=== PATIENT | male | born 1950 | race Caucasian/White ===

== ENCOUNTER 2017-06-18 16:52 | Inpatient (IN) ==
[2017-06-18] MEDS ORDERED: MORPHINE 2 MG/1 ML SYRINGE IV STA (17:36)
[2017-06-18] MEDS ORDERED: METOPROLOL TARTRATE 25 MG TABLET PO STA (17:36)
[2017-06-18] MEDS ORDERED: PANTOPRAZOLE 40 MG VIAL IV STA (17:36)
[2017-06-18] MEDS ORDERED: NITROGLYCERIN 2% OINT 1 INCH/GM PACK TOP STA (17:36)
[2017-06-18] MEDS ORDERED: ONDANSETRON 4 MG/2 ML VIAL IV STA (17:36)
[2017-06-18] MEDS ORDERED: ASPIRIN 325 MG TABLET PO STA (17:36)
[2017-06-18] MEDS ORDERED: ALUM/MAG/SIMETH/LIDO VISC 1:1 30 ML BOTTLE PO STA (17:36)
[2017-06-18] MEDS ORDERED: PANTOPRAZOLE 40 MG VIAL IV ONE (17:49)
[2017-06-18] MEDS ORDERED: ONDANSETRON 4 MG/2 ML VIAL ONE (17:49)
[2017-06-18] MEDS ORDERED: NITROGLYCERIN 2% OINT 1 INCH/GM PACK TOP ONE (17:49)
[2017-06-18] MEDS ORDERED: METOPROLOL TARTRATE 25 MG TABLET ONE (17:49)
[2017-06-18] MEDS ORDERED: ASPIRIN 325 MG TABLET ONE (17:50)
[2017-06-18] MEDS ORDERED: MORPHINE 10 MG/1 ML VIAL ONE (17:50)
[2017-06-18] MEDS ORDERED: ALUM/MAG/SIMETH/LIDO VISC 1:1 30 ML BOTTLE PO ONE (17:50)
[2017-06-18 18:28] LABS: Basophils % 0.2 % (0.0-0.8); Hematocrit 46.6 VOL% (42.0-52.0); Hemoglobin 16.2 GM/DL (14.0-18.0); Immature Granulocytes % 0.8 %; Immature Granulocytes Absolute 0.08 #; Lymphocytes # 0.7 10*3/uL (1.4-4.0); Lymphocytes % 7.2 % (21.2-54.2); Mean Corpuscular HGB Conc 34.8 GM/DL (32-36); Mean Corpuscular Hemoglobin 31 PG (27-34); Mean Corpuscular Volume 88.1 FL (87-102); Mean Platelet Volume 9.8 FL (9.6-12.0); Monocytes # 0.2 10*3/uL (0.11-0.8); Monocytes % 2.3 % (1.7-12.7); Neutrophils # 9.2 10*3/uL (1.4-7.4); Neutrophils % 89.5 % (38.7-73.9); Platelet Count 294 T/CUMM (130-400); Red Blood Count 5.29 MC/CUMM (3.8-5.5); Red Cell Distribution Width 12.9 % (9.3-17.3); White Blood Count 10.3 T/CUMM (4-12)
[2017-06-18 18:40] LABS: INR 1.1; PT Patient Result 11.4 SECS
[2017-06-18 18:47] LABS: Apearance,Urine Clear (Clear); Glucose,Urine (UA) 500 mg/dL (Negative); Ketones,Urine 25 mg/dL (Negative); Protein,Urine Negative; Urine Color Yellow (Yellow); Urine Specific Gravity 1.005 (1.001-1.035)
[2017-06-18 18:48] LABS: Bilirubin,Urine Negative (Negative); Blood, Urine Negative (Negative); Nitrite,Urine Negative (Negative); Urine Urobilinogen < 2.0 EU/DL (0.2-1.0)
[2017-06-18 18:51] LABS: Alanine Aminotransferase 33 U/L (16-61); Alkaline Phosphatase 115 U/L (45-117); Aspartate Amino Transferase 15 U/L (0-37); Bilirubin,Total < 0.39 MG/DL (0.2-1.0); Blood Urea Nitrogen 17 MG/DL (7-18); Calcium 9.1 MG/DL (8.5-10.1); Glucose 177 MG/DL (74-106); Lactic Acid 5.4 MMOL/L (0.4-2.0); Magnesium 2.1 MG/DL (1.8-2.4); Osmolality,Calculated 269.5 MOS/KG (273-304); Potassium 4.7 MMOL/L (3.5-5.1); Sodium 132 MMOL/L (136-145); Total Protein 7.5 G/DL (6.4-8.3)
[2017-06-18] MEDS ORDERED: PIPERACILLIN/TAZOBACTAM 3,375 MG VIAL IV ONE (19:39)
[2017-06-18] MEDS ORDERED: SODIUM CHLORIDE 0.9% 100 ML IV ONE (19:39)
[2017-06-18 19:50] LABS: ABG Base Excess -7.9 MMOL/L (-2.5-2.5); ABG HCO3 18.1 MMOL/L (20-26); ABG Oxygen Saturation 96.3 % (95-100); ABG PCO2 29.5 MM HG (35-48); ABG PH 7.351 (7.35-7.45); ABG PO2 88.6 MM HG (80-95); ABG TCO2 13.8 MMOL/L (23-27); Allen Test Positive
[2017-06-18] MEDS: PIPERACILLIN/TAZOBACTAM 3,375 MG in SODIUM CHLORIDE 0.9% 100 ML IV SCH (19:50)
[2017-06-18] MEDS ORDERED: DEXTROSE 50% 25 GM/50 ML VIAL IV PRN (22:06)
[2017-06-18] MEDS ORDERED: ACETAMINOPHEN 325 MG TABLET PO PRN (22:06)
[2017-06-18] MEDS ORDERED: LACTULOSE 20 GM/30 ML UDCUP PO PRN (22:06)
[2017-06-18] MEDS ORDERED: MORPHINE 10 MG/1 ML VIAL IV PRN (22:06)
[2017-06-18] MEDS ORDERED: GLUCAGON 1 MG VIAL IM PRN (22:06)
[2017-06-18] MEDS ORDERED: ONDANSETRON 4 MG/2 ML VIAL IV PRN (22:06)
[2017-06-18] MEDS: SODIUM CHLORIDE 0.9% 1,000 ML IV SCH (22:50)
[2017-06-18] MEDS: ENOXAPARIN 40 MG/0.4 ML SYRINGE SUBCUT SCH (22:51)
[2017-06-18] MEDS: DOCUSATE SODIUM 100 MG CAPSULE PO SCH (22:51)
[2017-06-18] MEDS: INSULIN REGULAR 100 UNIT/ML SUBCUT SCH (23:30)
[2017-06-19 00:16] LABS: Lactic Acid 3.8 MMOL/L (0.4-2.0)
[2017-06-19] MEDS: NITROGLYCERIN 2% OINT 1 INCH/GM PACK TOP SCH ×2 (00:24→06:18)
[2017-06-19] MEDS: PIPERACILLIN/TAZOBACTAM 3,375 MG in SODIUM CHLORIDE 0.9% 100 ML IV SCH ×3 (04:00→18:04)
[2017-06-19 05:55] LABS: Basophils % 0.2 % (0.0-0.8); Eosinophils % 0.2 % (0.00-10.9); Hematocrit 41.8 VOL% (42.0-52.0); Immature Granulocytes % 0.8 %; Lymphocytes # 2.6 10*3/uL (1.4-4.0); Lymphocytes % 19.9 % (21.2-54.2); Mean Corpuscular HGB Conc 33.5 GM/DL (32-36); Mean Corpuscular Hemoglobin 30 PG (27-34); Mean Corpuscular Volume 90.7 FL (87-102); Mean Platelet Volume 9.8 FL (9.6-12.0); Monocytes # 1.3 10*3/uL (0.11-0.8); Monocytes % 10.2 % (1.7-12.7); Neutrophils # 9.1 10*3/uL (1.4-7.4); Neutrophils % 68.7 % (38.7-73.9); Platelet Count 267 T/CUMM (130-400); Red Blood Count 4.61 MC/CUMM (3.8-5.5); Red Cell Distribution Width 13.1 % (9.3-17.3); White Blood Count 13.2 T/CUMM (4-12)
[2017-06-19 06:26] LABS: Albumin 3.3 G/DL (3.4-5.0); Bilirubin,Total 0.4 MG/DL (0.2-1.0); Calcium 8.4 MG/DL (8.5-10.1); Osmolality,Calculated 276.7 MOS/KG (273-304); Total Protein 6.2 G/DL (6.4-8.3)
[2017-06-19 06:28] LABS: Magnesium 2.4 MG/DL (1.8-2.4); Risk Ratio 4.28; VLDL CHOLESTEROL 23.4 MG/DL
[2017-06-19] MEDS ORDERED: RIZATRIPTAN ODT 5 MG TABLET PO PRN (07:55)
[2017-06-19] MEDS ORDERED: BUTALBITAL/ACETAMIN/CAFFEINE 50-325-40 MG TABLET PO SCH (08:00)
[2017-06-19] MEDS: metFORMIN 500 MG TABLET PO SCH ×2 (10:05→18:03)
[2017-06-19] MEDS: ASPIRIN EC 81 MG TABLET PO SCH (10:05)
[2017-06-19] MEDS: PANTOPRAZOLE 40 MG TABLET PO SCH ×2 (10:06→18:03)
[2017-06-19] MEDS: CLORAZEPATE 3.75 MG TABLET PO SCH ×3 (10:06→21:16)
[2017-06-19] MEDS: AMOXICILLIN/CLAV 875 MG TABLET PO SCH ×2 (10:06→21:16)
[2017-06-19] MEDS: TOPIRAMATE 100 MG TABLET PO SCH ×2 (10:06→21:16)
[2017-06-19] MEDS: DOCUSATE SODIUM 100 MG CAPSULE PO SCH ×2 (10:06→21:16)
[2017-06-19] MEDS: glipiZIDE 5 MG TABLET PO SCH ×2 (10:06→18:04)
[2017-06-19] MEDS: CETIRIZINE 10 MG TABLET PO SCH (10:06)
[2017-06-19] MEDS: SODIUM CHLORIDE 0.9% 1,000 ML IV SCH ×4 (10:07→21:50)
[2017-06-19] MEDS: INSULIN REGULAR 100 UNIT/ML SUBCUT SCH ×4 (10:07→21:16)
[2017-06-19] MEDS: PANTOPRAZOLE 40 MG VIAL IV SCH (10:07)
[2017-06-19] MEDS: methylPREDNISolone SOD SUC 40 MG/1 ML VIAL IV SCH ×2 (10:07→18:04)
[2017-06-19] MEDS: DICLOFENAC 1% GEL 100 GM TUBE TOP SCH ×4 (10:07→21:17)
[2017-06-19] MEDS: ENOXAPARIN 40 MG/0.4 ML SYRINGE SUBCUT SCH (21:16)
[2017-06-19] MEDS: CITALOPRAM 40 MG TABLET PO SCH (21:16)
[2017-06-19] MEDS: MONTELUKAST 10 MG TABLET PO SCH (21:16)
[2017-06-20] MEDS: methylPREDNISolone SOD SUC 40 MG/1 ML VIAL IV SCH ×3 (00:25→16:53)
[2017-06-20] MEDS: SODIUM CHLORIDE 0.9% 1,000 ML IV SCH ×4 (03:09→21:08)
[2017-06-20] MEDS: PIPERACILLIN/TAZOBACTAM 3,375 MG in SODIUM CHLORIDE 0.9% 100 ML IV SCH ×3 (03:09→22:22)
[2017-06-20 05:02] LABS: Basophils % 0.2 % (0.0-0.8); Hematocrit 43.4 VOL% (42.0-52.0); Hemoglobin 14.7 GM/DL (14.0-18.0); Immature Granulocytes % 0.8 %; Lymphocytes # 1.3 10*3/uL (1.4-4.0); Mean Corpuscular HGB Conc 33.9 GM/DL (32-36); Mean Corpuscular Hemoglobin 31 PG (27-34); Mean Corpuscular Volume 90.2 FL (87-102); Mean Platelet Volume 9.5 FL (9.6-12.0); Monocytes # 0.4 10*3/uL (0.11-0.8); Monocytes % 2.9 % (1.7-12.7); Neutrophils # 11.4 10*3/uL (1.4-7.4); Neutrophils % 86.1 % (38.7-73.9); Platelet Count 287 T/CUMM (130-400); Red Blood Count 4.81 MC/CUMM (3.8-5.5); Red Cell Distribution Width 12.9 % (9.3-17.3); White Blood Count 13.2 T/CUMM (4-12)
[2017-06-20 05:37] LABS: Calcium 8.7 MG/DL (8.5-10.1); Osmolality,Calculated 276.8 MOS/KG (273-304); Potassium 4.3 MMOL/L (3.5-5.1)
[2017-06-20] MEDS: INSULIN REGULAR 100 UNIT/ML SUBCUT SCH ×4 (09:00→21:08)
[2017-06-20] MEDS: DOCUSATE SODIUM 100 MG CAPSULE PO SCH ×2 (09:03→21:07)
[2017-06-20] MEDS: metFORMIN 500 MG TABLET PO SCH ×2 (09:04→16:51)
[2017-06-20] MEDS: PANTOPRAZOLE 40 MG TABLET PO SCH ×2 (09:04→17:01)
[2017-06-20] MEDS: CETIRIZINE 10 MG TABLET PO SCH (09:04)
[2017-06-20] MEDS: AMOXICILLIN/CLAV 875 MG TABLET PO SCH ×2 (09:04→21:07)
[2017-06-20] MEDS: ASPIRIN EC 81 MG TABLET PO SCH (09:04)
[2017-06-20] MEDS: CLORAZEPATE 3.75 MG TABLET PO SCH ×3 (09:05→21:07)
[2017-06-20] MEDS: glipiZIDE 5 MG TABLET PO SCH ×2 (09:05→17:02)
[2017-06-20] MEDS: PANTOPRAZOLE 40 MG VIAL IV SCH (09:11)
[2017-06-20] MEDS: DICLOFENAC 1% GEL 100 GM TUBE TOP SCH ×3 (13:26→21:08)
[2017-06-20] MEDS: TOPIRAMATE 100 MG TABLET PO SCH ×2 (13:27→21:07)
[2017-06-20] MEDS: ENOXAPARIN 40 MG/0.4 ML SYRINGE SUBCUT SCH (21:07)
[2017-06-20] MEDS: MONTELUKAST 10 MG TABLET PO SCH (21:07)
[2017-06-20] MEDS: CITALOPRAM 40 MG TABLET PO SCH (21:07)
[2017-06-21] MEDS: methylPREDNISolone SOD SUC 40 MG/1 ML VIAL IV SCH ×3 (00:14→17:03)
[2017-06-21 05:44] LABS: Basophils % 0.3 % (0.0-0.8); Hematocrit 42.2 VOL% (42.0-52.0); Hemoglobin 14.5 GM/DL (14.0-18.0); Immature Granulocytes % 1.6 %; Immature Granulocytes Absolute 0.18 #; Lymphocytes # 1.5 10*3/uL (1.4-4.0); Lymphocytes % 13.2 % (21.2-54.2); Mean Corpuscular HGB Conc 34.4 GM/DL (32-36); Mean Corpuscular Hemoglobin 31 PG (27-34); Mean Corpuscular Volume 89.6 FL (87-102); Mean Platelet Volume 9.5 FL (9.6-12.0); Monocytes # 0.5 10*3/uL (0.11-0.8); Monocytes % 4.5 % (1.7-12.7); Neutrophils # 9.2 10*3/uL (1.4-7.4); Neutrophils % 80.4 % (38.7-73.9); Platelet Count 264 T/CUMM (130-400); Red Blood Count 4.71 MC/CUMM (3.8-5.5); White Blood Count 11.5 T/CUMM (4-12)
[2017-06-21] MEDS: PIPERACILLIN/TAZOBACTAM 3,375 MG in SODIUM CHLORIDE 0.9% 100 ML IV SCH ×2 (06:04→11:28)
[2017-06-21] MEDS: SODIUM CHLORIDE 0.9% 1,000 ML IV SCH ×2 (06:05→17:00)
[2017-06-21 06:24] LABS: Calcium 8.3 MG/DL (8.5-10.1); Free T4 (Free Thyroxine) 0.72 NG/DL (0.76-1.46); Osmolality,Calculated 280.8 MOS/KG (273-304); Potassium 4.4 MMOL/L (3.5-5.1); Thyroid Stimulating Hormone 1.01 uIU/ml (0.358-3.74)
[2017-06-21 08:13] LABS: Sedimentation Rate-Westergren 16 MM/HR (0-20)
[2017-06-21] MEDS: CETIRIZINE 10 MG TABLET PO SCH (08:40)
[2017-06-21] MEDS: DOCUSATE SODIUM 100 MG CAPSULE PO SCH (08:40)
[2017-06-21] MEDS: ASPIRIN EC 81 MG TABLET PO SCH (08:40)
[2017-06-21] MEDS: AMOXICILLIN/CLAV 875 MG TABLET PO SCH (08:40)
[2017-06-21] MEDS: CLORAZEPATE 3.75 MG TABLET PO SCH ×2 (08:41→14:57)
[2017-06-21] MEDS: glipiZIDE 5 MG TABLET PO SCH ×2 (08:41→17:12)
[2017-06-21] MEDS: metFORMIN 500 MG TABLET PO SCH ×2 (08:41→17:12)
[2017-06-21] MEDS: TOPIRAMATE 100 MG TABLET PO SCH (08:41)
[2017-06-21] MEDS: PANTOPRAZOLE 40 MG TABLET PO SCH ×2 (08:41→17:12)
[2017-06-21] MEDS: PANTOPRAZOLE 40 MG VIAL IV SCH (08:42)
[2017-06-21] MEDS: INSULIN REGULAR 100 UNIT/ML SUBCUT SCH ×3 (08:47→17:02)
[2017-06-21] MEDS: DICLOFENAC 1% GEL 100 GM TUBE TOP SCH ×3 (08:48→17:04)
[2017-06-21 16:32] VITALS: BP 125/71
[2017-06-21] MEDS ORDERED: MELOXICAM 7.5 MG TABLET PO SCH (17:00)
== END 2017-06-21 17:20 | disposition home or self-care (01) | DRG 206 ==
LOC: N.ED 16:52 → N.EDINP 20:15 → N.TELES 21:37
PROVIDERS: ADMIT Family Medicine; ATTEND Family Medicine

== ENCOUNTER 2019-06-03 15:33 | Inpatient (IN) ==
[2019-06-03] MEDS ORDERED: ONDANSETRON 4 MG/2 ML VIAL IV STA (16:00)
[2019-06-03] MEDS ORDERED: ASPIRIN 325 MG TABLET PO STA (16:00)
[2019-06-03] MEDS ORDERED: MORPHINE 4 MG/1 ML VIAL IV STA (16:00)
[2019-06-03] MEDS ORDERED: SODIUM CHLORIDE 0.9% 500 ML IV STA (16:00)
[2019-06-03] MEDS ORDERED: cefTRIAXone 1,000 MG in SODIUM CHLORIDE 0.9% 100 ML IV STA (16:00)
[2019-06-03] MEDS ORDERED: methylPREDNISolone SOD SUC 125 MG/2 ML VIAL IV STA (16:00)
[2019-06-03] MEDS ORDERED: ALBUTEROL/IPRATROPIUM 3 ML NEB RESP TX STA (16:00)
[2019-06-03 16:24] LABS: Basophils % 0.5 % (0.0-0.8); Eosinophils # 0.3 10*3/uL (0.0-0.87); Eosinophils % 4.7 % (0.00-10.9); Hematocrit 42.8 VOL% (42.0-52.0); Hemoglobin 14.6 GM/DL (14.0-18.0); Immature Granulocytes % 1.5 %; Immature Granulocytes Absolute 0.09 #; Lymphocytes # 1.7 10*3/uL (1.4-4.0); Lymphocytes % 27.8 % (21.2-54.2); Mean Corpuscular HGB Conc 34.1 GM/DL (32-36); Mean Corpuscular Volume 93.9 FL (87-102); Mean Platelet Volume 9.9 FL (9.6-12.0); Monocytes % 14.3 % (1.7-12.7); Neutrophils % 51.2 % (38.7-73.9); Platelet Count 147 T/CUMM (130-400); Red Blood Count 4.56 MC/CUMM (3.8-5.5); Red Cell Distribution Width 12.8 % (9.3-17.3); White Blood Count 5.9 T/CUMM (4-12)
[2019-06-03 16:35] LABS: PT Patient Result 10.4 SECS (9.6-12.2)
[2019-06-03 16:46] LABS: Alanine Aminotransferase 44 U/L (16-61); Albumin 2.9 G/DL (3.4-5.0); Alkaline Phosphatase 89 U/L (45-117); Aspartate Amino Transferase 27 U/L (0-37); Bilirubin,Total < 0.39 MG/DL (0.2-1.0); Blood Urea Nitrogen 14 MG/DL (7-18); Calcium 8.4 MG/DL (8.5-10.1); Estimated Glom Filtration Rate 99 ML/MIN; Glucose 184 MG/DL (74-106); Osmolality,Calculated 275.1 MOS/KG (273-304); Total Protein 6.6 G/DL (6.4-8.3); Troponin I < 0.015 NG/ML (0.00-0.045)
[2019-06-03 16:52] LABS: Apearance,Urine CLEAR (Clear); Bilirubin,Urine Negative (Negative); Blood, Urine Negative (Negative); Glucose,Urine (UA) 50 mg/dL (Negative); Ketones,Urine 5 mg/dL (Negative); Nitrite,Urine Negative (Negative); Protein,Urine Negative; RBC,Urine 2 /HPF (0-4); Urine Color Straw (Yellow); Urine Specific Gravity 1.009 (1.001-1.035); Urine Urobilinogen < 2.0 EU/DL (0.2-1.0)
[2019-06-03] MEDS ORDERED: ONDANSETRON 4 MG/2 ML VIAL IV PRN (18:58)
[2019-06-03] MEDS ORDERED: GLUCAGON 1 MG VIAL IM PRN (18:58)
[2019-06-03] MEDS ORDERED: MORPHINE 4 MG/1 ML VIAL IV PRN (18:58)
[2019-06-03] MEDS ORDERED: DEXTROSE 50% 25 GM/50 ML VIAL IV PRN (18:58)
[2019-06-03] MEDS ORDERED: guaiFENesin/CODEINE 5 ML LIQUID PO PRN (18:58)
[2019-06-03] MEDS ORDERED: GALCANEZUMAB GNLM 120 MG SUBCUT SCH (18:58)
[2019-06-03] MEDS ORDERED: INDOMETHACIN SR 75 MG CAPSULE PO SCH (21:00)
[2019-06-03] MEDS: DOCUSATE SODIUM 100 MG CAPSULE PO SCH (21:42)
[2019-06-03] MEDS: GABAPENTIN 300 MG CAPSULE PO SCH (21:43)
[2019-06-03] MEDS: metFORMIN 500 MG TABLET PO SCH (21:44)
[2019-06-03] MEDS: DIVALPROEX 250 MG TABLET PO SCH (21:45)
[2019-06-03] MEDS: QUEtiapine 25 MG TABLET PO SCH (21:45)
[2019-06-03] MEDS: clonazePAM 0.5 MG TABLET PO SCH (21:45)
[2019-06-03] MEDS: INSULIN REGULAR 100 UNIT/ML SUBCUT SCH (21:46)
[2019-06-03] MEDS: ENOXAPARIN 40 MG/0.4 ML SYRINGE SUBCUT SCH (21:47)
[2019-06-03] MEDS: SODIUM CHLORIDE 0.9% 1,000 ML IV SCH (21:48)
[2019-06-04] MEDS: methylPREDNISolone SOD SUC 40 MG/1 ML VIAL IV SCH ×3 (00:25→16:42)
[2019-06-04] MEDS: ALBUTEROL/IPRATROPIUM 3 ML NEB RESP TX PRN ×3 (00:50→16:16)
[2019-06-04] MEDS: INSULIN REGULAR 100 UNIT/ML SUBCUT SCH ×4 (03:01→18:05)
[2019-06-04 04:58] LABS: Basophils % 0.2 % (0.0-0.8); Hematocrit 45.5 VOL% (42.0-52.0); Hemoglobin 15.2 GM/DL (14.0-18.0); Immature Granulocytes % 1.6 %; Immature Granulocytes Absolute 0.13 #; Lymphocytes # 0.8 10*3/uL (1.4-4.0); Lymphocytes % 10.2 % (21.2-54.2); Mean Corpuscular HGB Conc 33.4 GM/DL (32-36); Mean Corpuscular Volume 94.8 FL (87-102); Mean Platelet Volume 9.8 FL (9.6-12.0); Monocytes % 2.7 % (1.7-12.7); Neutrophils % 85.3 % (38.7-73.9); Platelet Count 157 T/CUMM (130-400); Red Cell Distribution Width 12.8 % (9.3-17.3)
[2019-06-04 05:21] LABS: Albumin 3.3 G/DL (3.4-5.0); Bilirubin,Total 0.4 MG/DL (0.2-1.0); Calcium 9.1 MG/DL (8.5-10.1); Osmolality,Calculated 282.8 MOS/KG (273-304); Risk Ratio 4.03; Total Protein 7.2 G/DL (6.4-8.3)
[2019-06-04] MEDS ORDERED: PANTOPRAZOLE 40 MG TABLET PO SCH (09:00)
[2019-06-04] MEDS: ACETAMINOPHEN 325 MG TABLET PO PRN (10:44)
[2019-06-04] MEDS: ASPIRIN EC 81 MG TABLET PO SCH (10:45)
[2019-06-04] MEDS: glipiZIDE 10 MG TABLET PO SCH ×2 (10:45→16:41)
[2019-06-04] MEDS: metFORMIN 500 MG TABLET PO SCH ×2 (10:45→20:36)
[2019-06-04] MEDS: SIMVASTATIN 20 MG TABLET PO SCH (10:45)
[2019-06-04] MEDS: predniSONE 5 MG TABLET PO SCH (10:45)
[2019-06-04] MEDS: GABAPENTIN 300 MG CAPSULE PO SCH ×2 (10:45→20:37)
[2019-06-04] MEDS: DOCUSATE SODIUM 100 MG CAPSULE PO SCH ×2 (10:45→20:36)
[2019-06-04] MEDS: DIVALPROEX 250 MG TABLET PO SCH ×2 (10:46→20:37)
[2019-06-04] MEDS: PANTOPRAZOLE 40 MG TABLET PO SCH ×2 (10:46→16:41)
[2019-06-04] MEDS: QUEtiapine 25 MG TABLET PO SCH ×2 (10:46→20:37)
[2019-06-04] MEDS: clonazePAM 0.5 MG TABLET PO SCH ×2 (10:46→20:37)
[2019-06-04] MEDS: SODIUM CHLORIDE 0.9% 1,000 ML IV SCH ×2 (12:45→13:41)
[2019-06-04] MEDS: cefTRIAXone 1,000 MG in SYRINGE 1 EACH IV SCH (16:43)
[2019-06-04] MEDS: ALBUTEROL/IPRATROPIUM 3 ML NEB RESP TX SCH (19:08)
[2019-06-04] MEDS: ENOXAPARIN 40 MG/0.4 ML SYRINGE SUBCUT SCH (20:37)
[2019-06-05] MEDS: SODIUM CHLORIDE 0.9% 1,000 ML IV SCH ×3 (00:16→16:20)
[2019-06-05] MEDS: methylPREDNISolone SOD SUC 40 MG/1 ML VIAL IV SCH ×3 (00:23→16:19)
[2019-06-05] MEDS: INSULIN REGULAR 100 UNIT/ML SUBCUT SCH ×4 (00:24→19:04)
[2019-06-05] MEDS: ALBUTEROL/IPRATROPIUM 3 ML NEB RESP TX SCH ×4 (00:38→19:30)
[2019-06-05 05:00] LABS: Basophils % 0.2 % (0.0-0.8); Hematocrit 42.1 VOL% (42.0-52.0); Hemoglobin 13.8 GM/DL (14.0-18.0); Immature Granulocytes % 1.5 %; Immature Granulocytes Absolute 0.21 #; Lymphocytes # 1.3 10*3/uL (1.4-4.0); Lymphocytes % 9.5 % (21.2-54.2); Mean Corpuscular HGB Conc 32.8 GM/DL (32-36); Mean Corpuscular Volume 95.7 FL (87-102); Mean Platelet Volume 9.7 FL (9.6-12.0); Neutrophils % 83.8 % (38.7-73.9); Platelet Count 180 T/CUMM (130-400)
[2019-06-05 05:28] LABS: Platelet Estimate Normal
[2019-06-05 05:29] LABS: Anisocytosis Slight; Macrocytosis Slight
[2019-06-05] MEDS: ASPIRIN EC 81 MG TABLET PO SCH (08:28)
[2019-06-05] MEDS: metFORMIN 500 MG TABLET PO SCH (08:29)
[2019-06-05] MEDS: DIVALPROEX 250 MG TABLET PO SCH ×2 (08:29→21:11)
[2019-06-05] MEDS: PANTOPRAZOLE 40 MG TABLET PO SCH ×2 (08:29→16:19)
[2019-06-05] MEDS: SIMVASTATIN 20 MG TABLET PO SCH (08:30)
[2019-06-05] MEDS: glipiZIDE 10 MG TABLET PO SCH ×2 (08:30→16:19)
[2019-06-05] MEDS: DOCUSATE SODIUM 100 MG CAPSULE PO SCH ×2 (08:30→21:12)
[2019-06-05] MEDS: clonazePAM 0.5 MG TABLET PO SCH ×2 (08:32→21:11)
[2019-06-05] MEDS: QUEtiapine 25 MG TABLET PO SCH ×2 (08:32→21:12)
[2019-06-05] MEDS: GABAPENTIN 300 MG CAPSULE PO SCH ×2 (08:32→21:12)
[2019-06-05] MEDS: predniSONE 5 MG TABLET PO SCH (08:38)
[2019-06-05 10:48] LABS: Alanine Aminotransferase 39 U/L (16-61); Albumin 3.1 G/DL (3.4-5.0); Alkaline Phosphatase 79 U/L (45-117); Aspartate Amino Transferase 13 U/L (0-37); Bilirubin,Total < 0.39 MG/DL (0.2-1.0); Blood Urea Nitrogen 17 MG/DL (7-18); Calcium 8.3 MG/DL (8.5-10.1); Estimated Glom Filtration Rate 80 ML/MIN; Glucose 238 MG/DL (74-106); Osmolality,Calculated 288.4 MOS/KG (273-304); Total Protein 6.5 G/DL (6.4-8.3)
[2019-06-05 13:02] LABS: Calcium 8.8 MG/DL (8.5-10.1); Osmolality,Calculated 277.1 MOS/KG (273-304)
[2019-06-05] MEDS: cefTRIAXone 1,000 MG in SYRINGE 1 EACH IV SCH (16:19)
[2019-06-05] MEDS: ACETAMINOPHEN 325 MG TABLET PO PRN (21:11)
[2019-06-05] MEDS: ENOXAPARIN 40 MG/0.4 ML SYRINGE SUBCUT SCH (21:12)
[2019-06-06] MEDS: methylPREDNISolone SOD SUC 40 MG/1 ML VIAL IV SCH (00:28)
[2019-06-06] MEDS: INSULIN REGULAR 100 UNIT/ML SUBCUT SCH ×2 (00:29→07:38)
[2019-06-06] MEDS: ALBUTEROL/IPRATROPIUM 3 ML NEB RESP TX SCH ×2 (00:40→06:58)
[2019-06-06 05:11] LABS: Basophils # 0.1 10*3/uL (0.0-0.2); Basophils % 0.7 % (0.0-0.8); Hematocrit 44.2 VOL% (42.0-52.0); Hemoglobin 14.5 GM/DL (14.0-18.0); Immature Granulocytes % 3.6 %; Immature Granulocytes Absolute 0.48 #; Lymphocytes # 1.4 10*3/uL (1.4-4.0); Lymphocytes % 10.3 % (21.2-54.2); Mean Corpuscular HGB Conc 32.8 GM/DL (32-36); Mean Corpuscular Volume 95.7 FL (87-102); Mean Platelet Volume 9.4 FL (9.6-12.0); Monocytes % 5.5 % (1.7-12.7); Neutrophils % 79.9 % (38.7-73.9); Platelet Count 177 T/CUMM (130-400); Red Blood Count 4.62 MC/CUMM (3.8-5.5); Red Cell Distribution Width 13.2 % (9.3-17.3); White Blood Count 13.5 T/CUMM (4-12)
[2019-06-06] MEDS: SODIUM CHLORIDE 0.9% 1,000 ML IV SCH (05:14)
[2019-06-06] MEDS ORDERED: BENZONATATE 100 MG CAPSULE PO PRN (07:42)
[2019-06-06] MEDS ORDERED: methylPREDNISolone 4 MG TABLET PO SCH (08:00)
[2019-06-06 08:26] VITALS: BP 154/86
[2019-06-06] MEDS ORDERED: CEFDINIR 300 MG CAPSULE PO SCH (09:00)
[2019-06-06] MEDS: clonazePAM 0.5 MG TABLET PO SCH (09:23)
[2019-06-06] MEDS: ASPIRIN EC 81 MG TABLET PO SCH (09:24)
[2019-06-06] MEDS: DOCUSATE SODIUM 100 MG CAPSULE PO SCH (09:24)
[2019-06-06] MEDS: glipiZIDE 10 MG TABLET PO SCH (09:24)
[2019-06-06] MEDS: predniSONE 5 MG TABLET PO SCH (09:24)
[2019-06-06] MEDS: SIMVASTATIN 20 MG TABLET PO SCH (09:24)
[2019-06-06] MEDS: DIVALPROEX 250 MG TABLET PO SCH (09:24)
[2019-06-06] MEDS: GABAPENTIN 300 MG CAPSULE PO SCH (09:25)
[2019-06-06] MEDS: QUEtiapine 25 MG TABLET PO SCH (09:25)
[2019-06-06] MEDS: PANTOPRAZOLE 40 MG TABLET PO SCH (09:25)
== END 2019-06-06 09:49 | disposition home or self-care (01) | DRG 202 ==
LOC: EDUNIT# → EDBD → N.ED 15:33 → N.EDINP 15:33 → N.2W 18:29 → N.2E 06-05 15:40
PROVIDERS: ADMIT Family Medicine; ATTEND Family Medicine

== ENCOUNTER 2020-04-22 20:28 | Inpatient (IN) ==
[2020-04-22 20:47] LABS: Basophils # 0.1 10*3/uL (0.0-0.2); Basophils % 0.4 % (0.0-0.8); Eosinophils % 0.1 % (0.00-10.9); Hematocrit 45.6 VOL% (42.0-52.0); Hemoglobin 16.2 GM/DL (14.0-18.0); Immature Granulocytes % 0.9 %; Immature Granulocytes Absolute 0.18 #; Lymphocytes # 0.8 10*3/uL (1.4-4.0); Lymphocytes % 4.1 % (21.2-54.2); Mean Corpuscular HGB Conc 35.5 GM/DL (32-36); Mean Corpuscular Volume 86.9 FL (87-102); Mean Platelet Volume 8.8 FL (9.6-12.0); Monocytes % 3.7 % (1.7-12.7); Neutrophils % 90.8 % (38.7-73.9); Platelet Count 241 T/CUMM (130-400); Red Blood Count 5.25 MC/CUMM (3.8-5.5); Red Cell Distribution Width 12.7 % (9.3-17.3); White Blood Count 19.7 T/CUMM (4-12)
[2020-04-22] MEDS ORDERED: SODIUM CHLORIDE 0.9% 1,000 ML IV STA ×2 (20:57→21:36)
[2020-04-22 21:03] LABS: Bilirubin,Urine Negative (Negative); Blood, Urine Negative (Negative); Glucose,Urine (UA) 150 mg/dL (Negative); Ketones,Urine 5 mg/dL (Negative); Mucus,Urine Occasional /LPF (Occasional); Nitrite,Urine Negative (Negative); Protein,Urine Negative; RBC,Urine 1 /HPF (0-4); Urine Appearance CLEAR (Clear); Urine Color Yellow (Yellow); Urine Specific Gravity 1.011 (1.001-1.035); WBC,Urine 1 /HPF (0-6)
[2020-04-22 21:05] LABS: Albumin 3.1 G/DL (3.4-5.0); Bilirubin,Total 0.7 MG/DL (0.2-1.0); Calcium 8.7 MG/DL (8.5-10.1); Osmolality,Calculated 260.8 MOS/KG (273-304); Potassium 4.1 MMOL/L (3.5-5.1); Total Protein 6.9 G/DL (6.4-8.3)
[2020-04-22 21:09] LABS: Band Neutrophils 9 % (0-10); Lymphocytes 4 % (20-55); Platelet Estimate Adequate; Segmented Neutrophils 82 % (50-85); Total Cells Counted 100
[2020-04-22] MEDS ORDERED: PIPERACILLIN/TAZOBACTAM 3,375 MG in SODIUM CHLORIDE 0.9% 100 ML IV STA (21:21)
[2020-04-22 21:41] LABS: Amylase 75 U/L (25-115); Troponin I < 0.015 NG/ML (0.00-0.045)
[2020-04-22] MEDS ORDERED: DILTIAZEM 50 MG/10 ML VIAL IV STA (22:32)
[2020-04-22] MEDS ORDERED: ENOXAPARIN 40 MG/0.4 ML SYRINGE SUBCUT STA (22:54)
[2020-04-22] MEDS ORDERED: ZALEPLON 5 MG CAPSULE PO PRN (23:31)
[2020-04-22] MEDS ORDERED: DOCUSATE SODIUM 100 MG CAPSULE PO PRN (23:41)
[2020-04-22] MEDS ORDERED: ACETAMINOPHEN 325 MG TABLET PO PRN (23:41)
[2020-04-22] MEDS ORDERED: ALBUTEROL 2.5 MG/3 ML NEB RESP TX PRN (23:41)
[2020-04-22] MEDS ORDERED: DEXTROSE 50% 25 GM/50 ML VIAL IV PRN (23:41)
[2020-04-22] MEDS ORDERED: ONDANSETRON 4 MG/2 ML VIAL IV PRN (23:41)
[2020-04-22] MEDS ORDERED: GLUCAGON 1 MG VIAL IM PRN (23:52)
[2020-04-23 00:14] LABS: Ferritin 65.1 ng/ml (26-388)
[2020-04-23] MEDS ORDERED: AMIODARONE INJ 150 MG in DEXTROSE 5% 100 ML IV ONE (00:40)
[2020-04-23] MEDS ORDERED: MAGNESIUM SULF RIDER 2 GM in PREMIX 1 EACH IV PRN (00:40)
[2020-04-23] MEDS ORDERED: POTASSIUM CHLORIDE 20 MEQ TABLET PO PRN (00:40)
[2020-04-23] MEDS ORDERED: MAGNESIUM SULF RIDER 4 GM in PREMIX 1 EACH IV PRN (00:40)
[2020-04-23] MEDS ORDERED: AMIODARONE INJ 450 MG in DEXTROSE 5% 241 ML IV SCH (01:00)
[2020-04-23] MEDS ORDERED: QUEtiapine 100 MG TABLET PO SCH (01:00)
[2020-04-23] MEDS ORDERED: AMIODARONE 150 MG/3 ML VIAL ONE (01:05)
[2020-04-23] MEDS: SODIUM CHLORIDE 0.9% 1,000 ML IV SCH ×3 (01:19→17:21)
[2020-04-23] MEDS: AMITRIPTYLINE 100 MG TABLET PO SCH ×3 (01:20→22:00)
[2020-04-23] MEDS: clonazePAM 0.5 MG TABLET PO SCH ×3 (01:20→22:00)
[2020-04-23] MEDS: DIVALPROEX 500 MG TABLET PO SCH ×3 (01:24→21:59)
[2020-04-23 05:55] LABS: Albumin 2.4 G/DL (3.4-5.0); Bilirubin,Total 0.6 MG/DL (0.2-1.0); Calcium 7.9 MG/DL (8.5-10.1); Osmolality,Calculated 261.2 MOS/KG (273-304); Potassium 4.7 MMOL/L (3.5-5.1); Total Protein 5.6 G/DL (6.4-8.3)
[2020-04-23] MEDS: PIPERACILLIN/TAZOBACTAM 3,375 MG in SODIUM CHLORIDE 0.9% 100 ML IV SCH ×3 (06:00→22:02)
[2020-04-23 06:03] LABS: Basophils # 0.1 10*3/uL (0.0-0.2); Basophils % 0.3 % (0.0-0.8); Eosinophils % 0.1 % (0.00-10.9); Hematocrit 41.3 VOL% (42.0-52.0); Hemoglobin 14.4 GM/DL (14.0-18.0); Immature Granulocytes Absolute 0.31 #; Lymphocytes # 1.7 10*3/uL (1.4-4.0); Lymphocytes % 5.3 % (21.2-54.2); Mean Corpuscular HGB Conc 34.9 GM/DL (32-36); Mean Corpuscular Volume 89.6 FL (87-102); Mean Platelet Volume 9.4 FL (9.6-12.0); Monocytes % 4.5 % (1.7-12.7); Neutrophils % 88.8 % (38.7-73.9); Platelet Count 226 T/CUMM (130-400); Red Blood Count 4.61 MC/CUMM (3.8-5.5); White Blood Count 31.5 T/CUMM (4-12)
[2020-04-23 06:30] LABS: Band Neutrophils 6 % (0-10); Lymphocytes 5 % (20-55); Platelet Estimate Adequate; Segmented Neutrophils 85 % (50-85); Total Cells Counted 100
[2020-04-23] MEDS: GABAPENTIN 300 MG CAPSULE PO SCH ×3 (08:19→21:59)
[2020-04-23] MEDS: INSULIN LISPRO 100 UNIT/ML SUBCUT SCH ×4 (08:19→21:59)
[2020-04-23] MEDS: TAMSULOSIN 0.4 MG CAPSULE PO SCH (08:20)
[2020-04-23] MEDS: glipiZIDE 10 MG TABLET PO SCH ×2 (08:20→16:15)
[2020-04-23] MEDS: SIMVASTATIN 20 MG TABLET PO SCH (08:20)
[2020-04-23] MEDS: busPIRone 15 MG TABLET PO SCH ×3 (08:20→22:01)
[2020-04-23] MEDS: PANTOPRAZOLE 40 MG TABLET PO SCH ×2 (08:20→16:15)
[2020-04-23] MEDS: ASPIRIN EC 81 MG TABLET PO SCH (08:20)
[2020-04-23] MEDS: QUEtiapine 25 MG TABLET PO SCH (08:20)
[2020-04-23 09:30] LABS: Thyroid Stimulating Hormone 1.26 uIU/ml (0.358-3.74)
[2020-04-23] MEDS: AMIODARONE INJ 450 MG in DEXTROSE 5% 241 ML IV SCH (09:36)
[2020-04-23] MEDS: AZITHROMYCIN INJ 500 MG in SODIUM CHLORIDE 0.9% 250 ML IV SCH (11:55)
[2020-04-23] MEDS: ENOXAPARIN 120 MG/0.8 ML SYRINGE SUBCUT SCH (16:14)
[2020-04-23] MEDS ORDERED: MAGNESIUM SULF RIDER 2 GM in PREMIX 1 EACH IV ONE (16:43)
[2020-04-23] MEDS ORDERED: ENOXAPARIN 40 MG/0.4 ML SYRINGE SUBCUT SCH (21:00)
[2020-04-24] MEDS: AMIODARONE INJ 450 MG in DEXTROSE 5% 241 ML IV SCH (01:14)
[2020-04-24] MEDS: SODIUM CHLORIDE 0.9% 1,000 ML IV SCH ×4 (01:16→18:18)
[2020-04-24] MEDS: ENOXAPARIN 120 MG/0.8 ML SYRINGE SUBCUT SCH (01:16)
[2020-04-24] MEDS: PIPERACILLIN/TAZOBACTAM 3,375 MG in SODIUM CHLORIDE 0.9% 100 ML IV SCH ×3 (04:24→21:55)
[2020-04-24 05:44] LABS: Basophils # 0.1 10*3/uL (0.0-0.2); Basophils % 0.3 % (0.0-0.8); Eosinophils # 0.2 10*3/uL (0.0-0.87); Eosinophils % 0.8 % (0.00-10.9); Hematocrit 37.8 VOL% (42.0-52.0); Hemoglobin 12.6 GM/DL (14.0-18.0); Immature Granulocytes % 0.7 %; Immature Granulocytes Absolute 0.14 #; Lymphocytes # 1.9 10*3/uL (1.4-4.0); Lymphocytes % 9.5 % (21.2-54.2); Mean Corpuscular HGB Conc 33.3 GM/DL (32-36); Mean Corpuscular Volume 91.7 FL (87-102); Monocytes % 6.4 % (1.7-12.7); Neutrophils % 82.3 % (38.7-73.9); Platelet Count 202 T/CUMM (130-400); Red Blood Count 4.12 MC/CUMM (3.8-5.5); Red Cell Distribution Width 13.4 % (9.3-17.3); White Blood Count 19.6 T/CUMM (4-12)
[2020-04-24 06:20] LABS: Albumin 2.4 G/DL (3.4-5.0); Bilirubin,Total 0.6 MG/DL (0.2-1.0); Calcium 8.1 MG/DL (8.5-10.1); Potassium 3.9 MMOL/L (3.5-5.1); Total Protein 5.9 G/DL (6.4-8.3)
[2020-04-24] MEDS ORDERED: LORazepam 1 MG TABLET PO ONE (09:00)
[2020-04-24] MEDS ORDERED: LORazepam 2 MG/1 ML VIAL IV PRN (09:19)
[2020-04-24] MEDS: clonazePAM 0.5 MG TABLET PO SCH ×2 (09:57→21:27)
[2020-04-24] MEDS: GABAPENTIN 300 MG CAPSULE PO SCH ×3 (09:57→21:23)
[2020-04-24] MEDS: glipiZIDE 10 MG TABLET PO SCH ×2 (09:58→18:17)
[2020-04-24] MEDS: AMITRIPTYLINE 100 MG TABLET PO SCH ×2 (09:58→21:28)
[2020-04-24] MEDS: DIVALPROEX 500 MG TABLET PO SCH ×2 (09:59→21:28)
[2020-04-24] MEDS: QUEtiapine 25 MG TABLET PO SCH (09:59)
[2020-04-24] MEDS: busPIRone 15 MG TABLET PO SCH ×3 (09:59→21:28)
[2020-04-24] MEDS: ASPIRIN EC 81 MG TABLET PO SCH (09:59)
[2020-04-24] MEDS: TAMSULOSIN 0.4 MG CAPSULE PO SCH (09:59)
[2020-04-24] MEDS: METOPROLOL TARTRATE 25 MG TABLET PO SCH ×2 (09:59→21:28)
[2020-04-24] MEDS: PANTOPRAZOLE 40 MG TABLET PO SCH ×2 (09:59→18:17)
[2020-04-24] MEDS: ENOXAPARIN 40 MG/0.4 ML SYRINGE SUBCUT SCH (10:00)
[2020-04-24] MEDS: SIMVASTATIN 20 MG TABLET PO SCH (10:00)
[2020-04-24] MEDS: INSULIN LISPRO 100 UNIT/ML SUBCUT SCH ×4 (10:00→21:21)
[2020-04-24] MEDS: AZITHROMYCIN INJ 500 MG in SODIUM CHLORIDE 0.9% 250 ML IV SCH (11:00)
[2020-04-25] MEDS: SODIUM CHLORIDE 0.9% 1,000 ML IV SCH ×3 (02:15→16:41)
[2020-04-25 04:41] LABS: Basophils # 0.1 10*3/uL (0.0-0.2); Basophils % 0.6 % (0.0-0.8); Eosinophils # 0.2 10*3/uL (0.0-0.87); Eosinophils % 1.3 % (0.00-10.9); Hematocrit 37.1 VOL% (42.0-52.0); Hemoglobin 12.3 GM/DL (14.0-18.0); Immature Granulocytes % 1.5 %; Lymphocytes # 1.6 10*3/uL (1.4-4.0); Lymphocytes % 11.7 % (21.2-54.2); Mean Corpuscular HGB Conc 33.2 GM/DL (32-36); Mean Corpuscular Volume 92.5 FL (87-102); Mean Platelet Volume 9.2 FL (9.6-12.0); Monocytes % 10.2 % (1.7-12.7); Neutrophils % 74.7 % (38.7-73.9); Platelet Count 195 T/CUMM (130-400); Red Blood Count 4.01 MC/CUMM (3.8-5.5); Red Cell Distribution Width 13.2 % (9.3-17.3); White Blood Count 13.4 T/CUMM (4-12)
[2020-04-25] MEDS: PIPERACILLIN/TAZOBACTAM 3,375 MG in SODIUM CHLORIDE 0.9% 100 ML IV SCH ×2 (05:06→13:50)
[2020-04-25 05:07] LABS: Albumin 2.3 G/DL (3.4-5.0); Bilirubin,Total 0.5 MG/DL (0.2-1.0); Calcium 7.8 MG/DL (8.5-10.1); Osmolality,Calculated 271.8 MOS/KG (273-304); Potassium 4.1 MMOL/L (3.5-5.1)
[2020-04-25] MEDS: AMITRIPTYLINE 100 MG TABLET PO SCH ×2 (08:30→20:23)
[2020-04-25] MEDS: clonazePAM 0.5 MG TABLET PO SCH ×2 (08:30→20:22)
[2020-04-25] MEDS: ASPIRIN EC 81 MG TABLET PO SCH (08:31)
[2020-04-25] MEDS: PANTOPRAZOLE 40 MG TABLET PO SCH ×2 (08:31→16:03)
[2020-04-25] MEDS: GABAPENTIN 300 MG CAPSULE PO SCH ×3 (08:31→20:23)
[2020-04-25] MEDS: QUEtiapine 25 MG TABLET PO SCH (08:31)
[2020-04-25] MEDS: glipiZIDE 10 MG TABLET PO SCH ×2 (08:31→16:03)
[2020-04-25] MEDS: DIVALPROEX 500 MG TABLET PO SCH ×2 (08:32→20:23)
[2020-04-25] MEDS: ENOXAPARIN 40 MG/0.4 ML SYRINGE SUBCUT SCH (08:32)
[2020-04-25] MEDS: busPIRone 15 MG TABLET PO SCH ×3 (08:32→20:23)
[2020-04-25] MEDS: SIMVASTATIN 20 MG TABLET PO SCH (08:32)
[2020-04-25] MEDS: INSULIN LISPRO 100 UNIT/ML SUBCUT SCH ×4 (08:32→21:22)
[2020-04-25] MEDS: TAMSULOSIN 0.4 MG CAPSULE PO SCH (08:32)
[2020-04-25] MEDS: METOPROLOL TARTRATE 25 MG TABLET PO SCH ×2 (08:44→20:23)
[2020-04-25] MEDS: AZITHROMYCIN INJ 500 MG in SODIUM CHLORIDE 0.9% 250 ML IV SCH (09:13)
[2020-04-25] MEDS: cefTRIAXone 1,000 MG in SYRINGE 1 EACH IV SCH (18:11)
[2020-04-26] MEDS: SODIUM CHLORIDE 0.9% 1,000 ML IV SCH ×4 (02:15→17:21)
[2020-04-26 05:52] LABS: Basophils # 0.1 10*3/uL (0.0-0.2); Basophils % 0.8 % (0.0-0.8); Eosinophils # 0.2 10*3/uL (0.0-0.87); Eosinophils % 2.2 % (0.00-10.9); Hematocrit 42.8 VOL% (42.0-52.0); Hemoglobin 14.4 GM/DL (14.0-18.0); Immature Granulocytes % 2.2 %; Immature Granulocytes Absolute 0.24 #; Lymphocytes # 1.8 10*3/uL (1.4-4.0); Lymphocytes % 16.8 % (21.2-54.2); Mean Corpuscular HGB Conc 33.6 GM/DL (32-36); Mean Corpuscular Volume 90.5 FL (87-102); Mean Platelet Volume 9.2 FL (9.6-12.0); Monocytes % 11.2 % (1.7-12.7); Neutrophils % 66.8 % (38.7-73.9); Platelet Count 225 T/CUMM (130-400); Red Blood Count 4.73 MC/CUMM (3.8-5.5); Red Cell Distribution Width 13.1 % (9.3-17.3); White Blood Count 10.8 T/CUMM (4-12)
[2020-04-26 06:06] LABS: Osmolality,Calculated 265.4 MOS/KG (273-304); Potassium 4.1 MMOL/L (3.5-5.1)
[2020-04-26] MEDS: glipiZIDE 10 MG TABLET PO SCH ×2 (09:02→17:21)
[2020-04-26] MEDS: GABAPENTIN 300 MG CAPSULE PO SCH ×3 (09:02→22:12)
[2020-04-26] MEDS: TAMSULOSIN 0.4 MG CAPSULE PO SCH ×2 (09:03→21:53)
[2020-04-26] MEDS: AMITRIPTYLINE 100 MG TABLET PO SCH ×2 (09:03→22:12)
[2020-04-26] MEDS: METOPROLOL TARTRATE 25 MG TABLET PO SCH ×2 (09:03→21:53)
[2020-04-26] MEDS: PANTOPRAZOLE 40 MG TABLET PO SCH ×2 (09:03→17:21)
[2020-04-26] MEDS: QUEtiapine 25 MG TABLET PO SCH (09:03)
[2020-04-26] MEDS: DIVALPROEX 500 MG TABLET PO SCH ×2 (09:03→21:52)
[2020-04-26] MEDS: SIMVASTATIN 20 MG TABLET PO SCH (09:03)
[2020-04-26] MEDS: ENOXAPARIN 40 MG/0.4 ML SYRINGE SUBCUT SCH (09:04)
[2020-04-26] MEDS: busPIRone 15 MG TABLET PO SCH ×3 (09:04→22:13)
[2020-04-26] MEDS: INSULIN LISPRO 100 UNIT/ML SUBCUT SCH ×4 (09:04→22:13)
[2020-04-26] MEDS: ASPIRIN EC 81 MG TABLET PO SCH (09:04)
[2020-04-26] MEDS: AZITHROMYCIN INJ 500 MG in SODIUM CHLORIDE 0.9% 250 ML IV SCH (09:05)
[2020-04-26] MEDS: clonazePAM 0.5 MG TABLET PO SCH ×2 (13:42→21:52)
[2020-04-26] MEDS: cefTRIAXone 1,000 MG in SYRINGE 1 EACH IV SCH (17:21)
[2020-04-26] MEDS ORDERED: SODIUM CHLORIDE 0.9% 1,000 ML IV SCH (17:30)
[2020-04-27 06:01] LABS: Basophils # 0.1 10*3/uL (0.0-0.2); Basophils % 0.9 % (0.0-0.8); Eosinophils # 0.4 10*3/uL (0.0-0.87); Eosinophils % 4.1 % (0.00-10.9); Hematocrit 41.1 VOL% (42.0-52.0); Hemoglobin 13.8 GM/DL (14.0-18.0); Immature Granulocytes Absolute 0.35 #; Lymphocytes # 1.7 10*3/uL (1.4-4.0); Mean Corpuscular HGB Conc 33.6 GM/DL (32-36); Mean Corpuscular Volume 90.7 FL (87-102); Mean Platelet Volume 9.3 FL (9.6-12.0); Monocytes % 14.1 % (1.7-12.7); Neutrophils % 57.9 % (38.7-73.9); Platelet Count 243 T/CUMM (130-400); Red Blood Count 4.53 MC/CUMM (3.8-5.5); White Blood Count 8.7 T/CUMM (4-12)
[2020-04-27 06:18] LABS: Calcium 8.8 MG/DL (8.5-10.1); Potassium 4.5 MMOL/L (3.5-5.1)
[2020-04-27] MEDS: INSULIN LISPRO 100 UNIT/ML SUBCUT SCH (08:30)
[2020-04-27] MEDS: glipiZIDE 10 MG TABLET PO SCH (08:58)
[2020-04-27] MEDS: GABAPENTIN 300 MG CAPSULE PO SCH (08:58)
[2020-04-27] MEDS: SIMVASTATIN 20 MG TABLET PO SCH (08:59)
[2020-04-27] MEDS: clonazePAM 0.5 MG TABLET PO SCH (08:59)
[2020-04-27] MEDS: DIVALPROEX 500 MG TABLET PO SCH (08:59)
[2020-04-27] MEDS: ASPIRIN EC 81 MG TABLET PO SCH (08:59)
[2020-04-27] MEDS: ENOXAPARIN 40 MG/0.4 ML SYRINGE SUBCUT SCH (08:59)
[2020-04-27] MEDS: AMITRIPTYLINE 100 MG TABLET PO SCH (08:59)
[2020-04-27] MEDS ORDERED: DOXYCYCLINE HYCLATE 100 MG CAPSULE PO SCH (09:00)
[2020-04-27] MEDS: PANTOPRAZOLE 40 MG TABLET PO SCH (09:00)
[2020-04-27] MEDS: busPIRone 15 MG TABLET PO SCH (09:00)
[2020-04-27] MEDS: METOPROLOL TARTRATE 25 MG TABLET PO SCH (09:00)
[2020-04-27] MEDS: TAMSULOSIN 0.4 MG CAPSULE PO SCH (09:04)
[2020-04-27] MEDS: QUEtiapine 25 MG TABLET PO SCH (09:04)
[2020-04-27 09:12] VITALS: BP 146/90
[2020-04-27] MEDS: AZITHROMYCIN INJ 500 MG in SODIUM CHLORIDE 0.9% 250 ML IV SCH (10:09)
== END 2020-04-27 10:37 | disposition home health service (06) | DRG 872 ==
LOC: EDUNIT# → N.ED 20:28 → N.EDINP 23:28 → SUATTDRO 23:28 → N.CC 04-23 00:34 → N.TELES 04-23 14:51
PROVIDERS: ADMIT Family Medicine; ATTEND Family Medicine

== ENCOUNTER 2021-12-19 01:24 | Inpatient (IN) ==
[2021-12-19] MEDS ORDERED: SODIUM CHLORIDE 0.9% 1,000 ML IV STA (02:01)
[2021-12-19 02:04] LABS: Basophils # 0.1 10*3/uL (0.0-0.2); Basophils % 0.7 % (0.0-0.8); Eosinophils # 0.1 10*3/uL (0.0-0.87); Hematocrit 44.6 VOL% (42.0-52.0); Immature Granulocytes % 3.3 %; Immature Granulocytes Absolute 0.35 #; Lymphocytes # 1.4 10*3/uL (1.4-4.0); Lymphocytes % 13.4 % (21.2-54.2); Mean Corpuscular HGB Conc 33.6 GM/DL (32-36); Mean Corpuscular Volume 91.6 FL (87-102); Mean Platelet Volume 8.7 FL (9.6-12.0); Monocytes # 1.4 10*3/uL (0.11-0.8); Monocytes % 13.1 % (1.7-12.7); Neutrophils % 68.5 % (38.7-73.9); Platelet Count 240 T/CUMM (130-400); Red Blood Count 4.87 MC/CUMM (3.8-5.5); Red Cell Distribution Width 13.5 % (9.3-17.3); White Blood Count 10.7 T/CUMM (4-12)
[2021-12-19 02:14] LABS: PT Patient Result 11.4 SECS (10.5-12.0)
[2021-12-19 02:20] LABS: Alanine Aminotransferase 23 U/L (16-61); Albumin 3.5 G/DL (3.4-5.0); Alkaline Phosphatase 83 U/L (45-117); Aspartate Amino Transferase 18 U/L (0-37); Blood Urea Nitrogen 7 MG/DL (7-18); Calcium 9.5 MG/DL (8.5-10.1); Carbon Dioxide 27 MMOL/L (21-32); Chloride 95 MMOL/L (98-107); Glucose 101 MG/DL (74-106); Osmolality,Calculated 252.2 MOS/KG (273-304); Potassium 4.4 MMOL/L (3.5-5.1); Sodium 127 MMOL/L (136-145); Total Protein 7.7 G/DL (6.4-8.2)
[2021-12-19] MEDS ORDERED: SODIUM CHLORIDE 0.9% 2,000 ML IV STA (02:26)
[2021-12-19 02:32] LABS: Bacteria,Urine Occasional /HPF (Few); Squamous Epithelial Cell,Urine Occasional /HPF (0-10)
[2021-12-19 02:33] LABS: Bilirubin,Urine Negative (Negative); Blood, Urine Negative (Negative); Glucose,Urine (UA) 250 mg/dL (Negative); Ketones,Urine Negative (Negative); Nitrite,Urine Negative (Negative); Protein,Urine Negative (Negative); Urine Appearance Clear (Clear); Urine Color Yellow (Yellow); Urine pH 7.5 (4.5-8.0)
[2021-12-19] MEDS ORDERED: LEVOFLOXACIN INJ 500 MG/100 ML PREMIX IV ONE (03:17)
[2021-12-19] MEDS ORDERED: ACETAMINOPHEN 500 MG TABLET PO STA (03:19)
[2021-12-19] MEDS ORDERED: SODIUM CHLORIDE 0.9% 250 ML IV STA (03:44)
[2021-12-19] MEDS ORDERED: SIMETHICONE CHEW 125 MG TABLET PO PRN (03:56)
[2021-12-19] MEDS ORDERED: hydrALAZINE 20 MG/1 ML VIAL IV PRN (03:56)
[2021-12-19] MEDS ORDERED: ONDANSETRON 4 MG/2 ML VIAL IV PRN (03:56)
[2021-12-19] MEDS ORDERED: ACETAMINOPHEN 325 MG TABLET PO PRN (03:56)
[2021-12-19] MEDS ORDERED: GLUCAGON 1 MG VIAL IM PRN (03:56)
[2021-12-19] MEDS ORDERED: DEXTROSE 10% 250 ML BAG IV PRN (04:04)
[2021-12-19] MEDS ORDERED: LABETALOL 20 MG/4 ML SYRINGE IV STA (04:05)
[2021-12-19] MEDS ORDERED: METOPROLOL TARTRATE 5 MG/5 ML VIAL IV ONE (04:37)
[2021-12-19] MEDS ORDERED: REMDESIVIR 200 MG in SODIUM CHLORIDE 0.9% 210 ML IV ONE (05:00)
[2021-12-19 05:03] LABS: Ferritin 43.3 ng/mL (26-388)
[2021-12-19] MEDS: SODIUM CHLORIDE 0.9% 1,000 ML IV SCH ×2 (06:13→22:25)
[2021-12-19] MEDS: INSULIN REGULAR 100 UNIT/ML SUBCUT SCH ×4 (08:56→22:27)
[2021-12-19] MEDS: ZINC GLUCONATE 50 MG TABLET PO SCH (09:05)
[2021-12-19] MEDS: DEXAMETHASONE 4 MG/1 ML VIAL IV SCH (09:05)
[2021-12-19] MEDS: ENOXAPARIN 40 MG/0.4 ML SYRINGE SUBCUT SCH (09:05)
[2021-12-19] MEDS: DOCUSATE SODIUM 100 MG CAPSULE PO SCH ×2 (09:05→22:25)
[2021-12-19] MEDS: ASCORBIC ACID 500 MG TABLET PO SCH ×2 (09:06→22:24)
[2021-12-19] MEDS: CETIRIZINE 10 MG TABLET PO SCH (09:06)
[2021-12-19] MEDS: CHOLECALCIFEROL 1,000 UNIT TABLET PO SCH (09:07)
[2021-12-19] MEDS: PANTOPRAZOLE 40 MG TABLET PO SCH (09:07)
[2021-12-19] MEDS: METOPROLOL TARTRATE 25 MG TABLET PO SCH ×2 (09:07→22:24)
[2021-12-19] MEDS ORDERED: MAGNESIUM OXIDE 400 MG TABLET PO ONE (12:05)
[2021-12-19] MEDS: cefTRIAXone 1,000 MG in SODIUM CHLORIDE 0.9% 100 ML IV SCH (13:26)
[2021-12-20] MEDS ORDERED: AZITHROMYCIN INJ 500 MG in SODIUM CHLORIDE 0.9% 250 ML IV ONE (03:56)
[2021-12-20 06:48] LABS: Basophils # 0.1 10*3/uL (0.0-0.2); Basophils % 0.8 % (0.0-0.8); Eosinophils % 0.1 % (0.00-10.9); Hematocrit 42.3 VOL% (42.0-52.0); Hemoglobin 13.8 GM/DL (14.0-18.0); Immature Granulocytes % 3.2 %; Immature Granulocytes Absolute 0.35 #; Lymphocytes % 17.9 % (21.2-54.2); Mean Corpuscular HGB Conc 32.6 GM/DL (32-36); Mean Platelet Volume 8.8 FL (9.6-12.0); Monocytes # 1.9 10*3/uL (0.11-0.8); Monocytes % 16.9 % (1.7-12.7); Neutrophils % 61.1 % (38.7-73.9); Platelet Count 243 T/CUMM (130-400); Red Blood Count 4.55 MC/CUMM (3.8-5.5); Red Cell Distribution Width 13.7 % (9.3-17.3)
[2021-12-20 07:12] LABS: Band Neutrophils 2 % (0-10); Hypochromia Slight; Lymphocytes 12 % (20-55); Total Cells Counted 100
[2021-12-20 07:13] LABS: Microcytosis Slight; Platelet Estimate Normal
[2021-12-20 07:43] LABS: Calcium 8.9 MG/DL (8.5-10.1); Osmolality,Calculated 266.4 MOS/KG (273-304); Potassium 4.1 MMOL/L (3.5-5.1)
[2021-12-20] MEDS: ENOXAPARIN 40 MG/0.4 ML SYRINGE SUBCUT SCH (10:26)
[2021-12-20] MEDS: DOCUSATE SODIUM 100 MG CAPSULE PO SCH ×2 (10:27→22:12)
[2021-12-20] MEDS: ASCORBIC ACID 500 MG TABLET PO SCH ×2 (10:27→22:12)
[2021-12-20] MEDS: CETIRIZINE 10 MG TABLET PO SCH (10:27)
[2021-12-20] MEDS: AZITHROMYCIN 250 MG TABLET PO SCH (10:27)
[2021-12-20] MEDS: METOPROLOL TARTRATE 25 MG TABLET PO SCH ×2 (10:27→22:12)
[2021-12-20] MEDS: PANTOPRAZOLE 40 MG TABLET PO SCH (10:27)
[2021-12-20] MEDS: CHOLECALCIFEROL 1,000 UNIT TABLET PO SCH (10:27)
[2021-12-20] MEDS: REMDESIVIR 100 MG in SODIUM CHLORIDE 0.9% 100 ML IV SCH (10:28)
[2021-12-20] MEDS: ZINC GLUCONATE 50 MG TABLET PO SCH (10:28)
[2021-12-20] MEDS: DEXAMETHASONE 4 MG/1 ML VIAL IV SCH (10:28)
[2021-12-20] MEDS: INSULIN REGULAR 100 UNIT/ML SUBCUT SCH ×4 (10:44→22:12)
[2021-12-20] MEDS: cefTRIAXone 1,000 MG in SODIUM CHLORIDE 0.9% 100 ML IV SCH (18:48)
[2021-12-21 05:28] LABS: Basophils % 0.3 % (0.0-0.8); Eosinophils % 0.3 % (0.00-10.9); Hematocrit 43.9 VOL% (42.0-52.0); Hemoglobin 14.4 GM/DL (14.0-18.0); Immature Granulocytes % 3.1 %; Immature Granulocytes Absolute 0.32 #; Lymphocytes # 2.3 10*3/uL (1.4-4.0); Lymphocytes % 22.2 % (21.2-54.2); Mean Corpuscular HGB Conc 32.8 GM/DL (32-36); Mean Corpuscular Volume 94.4 FL (87-102); Mean Platelet Volume 9.2 FL (9.6-12.0); Monocytes # 1.4 10*3/uL (0.11-0.8); Neutrophils % 60.1 % (38.7-73.9); Platelet Count 232 T/CUMM (130-400); Red Blood Count 4.65 MC/CUMM (3.8-5.5); Red Cell Distribution Width 13.6 % (9.3-17.3); White Blood Count 10.2 T/CUMM (4-12)
[2021-12-21 05:48] LABS: Calcium 9.1 MG/DL (8.5-10.1); Osmolality,Calculated 268.2 MOS/KG (273-304); Potassium 3.9 MMOL/L (3.5-5.1)
[2021-12-21 05:52] LABS: Eosinophils 1 % (0-10); Lymphocytes 22 % (20-55); Platelet Estimate Adequate; Total Cells Counted 100
[2021-12-21] MEDS: DEXAMETHASONE 4 MG/1 ML VIAL IV SCH (09:13)
[2021-12-21] MEDS: ZINC GLUCONATE 50 MG TABLET PO SCH (09:45)
[2021-12-21] MEDS: CHOLECALCIFEROL 1,000 UNIT TABLET PO SCH (09:46)
[2021-12-21] MEDS: AZITHROMYCIN 250 MG TABLET PO SCH (09:46)
[2021-12-21] MEDS: PANTOPRAZOLE 40 MG TABLET PO SCH (09:46)
[2021-12-21] MEDS: METOPROLOL TARTRATE 25 MG TABLET PO SCH (09:46)
[2021-12-21] MEDS: DOCUSATE SODIUM 100 MG CAPSULE PO SCH (09:46)
[2021-12-21] MEDS: ENOXAPARIN 40 MG/0.4 ML SYRINGE SUBCUT SCH (09:46)
[2021-12-21] MEDS: ASCORBIC ACID 500 MG TABLET PO SCH (09:46)
[2021-12-21] MEDS: CETIRIZINE 10 MG TABLET PO SCH (09:46)
[2021-12-21] MEDS: REMDESIVIR 100 MG in SODIUM CHLORIDE 0.9% 100 ML IV SCH (09:55)
[2021-12-21] MEDS: INSULIN REGULAR 100 UNIT/ML SUBCUT SCH ×2 (11:11→11:24)
[2021-12-21 12:17] VITALS: BP 149/92
[2021-12-21] MEDS: cefTRIAXone 1,000 MG in SODIUM CHLORIDE 0.9% 100 ML IV SCH (15:20)
== END 2021-12-21 14:16 | disposition home or self-care (01) | DRG 178 ==
LOC: N.ED 01:24 → SUATTDRO 03:56 → N.EDINP 03:56 → N.5E 04:26 → N.TELES 05:50
PROVIDERS: ADMIT Internal Medicine; ATTEND Internal Medicine